=== PATIENT | male | born 2000 | race Caucasian/White ===

== ENCOUNTER 2024-08-19 18:30 | Outpatient (RCR) | payer SELFPAY, OTHER ==
--- NOTE | 2024-08-19 17:50 | HP.OTEVAL_ITS ---
Patient's Visit Information Visit Information Visit Information: SHANE PAYAN is a 23 year old M, referred to Occupational Therapy by Dr. Nuria Rooney MD, with a diagnosis of osteochondrosis of lunate right wrist. Date of Evaluation: 08/09/24 Occupational Therapist: Marilu Pratt, PETERR/Paola, CHT Subjective Subjective: This 23 year old male was seen for OT eval with dx of Osteochondrosis of Lunate of right wrist. 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 pt arrives to session with orthosis on. pt arrives 5 weeks and 1 day s/p from lunate revascularization with graft - ROM Forearm: right 40/45 (with orthosis on) left WNL Wrist: right 25/10 left 65/65 ROM Comments: pt can form composite fist no limitation with digits- no residual swelling in hand or fingers Strength Supervisor Remelt: right NT left 115# Lateral Pinch: right NT left 24# Tripod Pinch: right NT left 24# Strength Comments: will test right later date Sensation Sensation Comments: denies Quick DASH-Disab of Arm,Shoulder& Hand Quick DASH Score: 31.6650 Goals Goal:Daily scar massage when approriate: Yes Goal:ROM equal to unaffected hand: Yes Goal:Supervisor Remelt/Pinch strength at least 75% of unaffected hand: Yes Comment: will initiate when releases Goal:No pain with affected hand use: Yes Goal:Full use of affected hand in daily activities including work: Yes Other Goal: orthosis use: pt demo understanding of orthosis use at all times by end of 1st session. Rehabilitation General Assessment: pt arrives 5 weeks and 1 days s/p from a right lunate vascularized bone graft - PIN neuroma excision. pt arrives with orthosis on reporting he is doing well- pt limited with use of right UE at this time due to newly healing structures. pt would benefit from skilled OT services 1x week for 8 weeks to return pt to his PLOF. pt demo understanding and agree to POC. Today therapist ed. pt on scar mobilization, and to continue with finger/thumb ROM and light initiation of wrist flex/ext only short arch wrist 10-20* only - pt demo understanding. Ed. pt will need cleared by to progress further ROM. Rehabilitation Potential: Good Anticipated Interventions Anticipated Interventions: A/AAROM/PROM, Strengthening, Modalities, Orthoses, Joint Protection/Energy Conservation, Ergonomic Education, Education re Diagnosis and Home Program Visit Plan Frequency: 1x/Week Duration: 2 Months General Plan: pt demo with with no sings of edema Denies pain will initiate light motion of dart throwers and comfort slow motion 10-20* until Dr. shaw pt for further motion TEXT: Thank you for the opportunity to evaluate your patient. For Medicare and Medicare HMO plans, please review the plan of care and approve it. It will need to be FAXED BACK to us at [phone] for Medicare purposes. Please let me know if there are questions or concerns regarding this plan of care. Physician Signature: Date:
--- NOTE | 2024-12-24 15:28 | HP.OT.NRP ---
Patient Information Patient Information: SHANE PAYAN was seen in my office for initial evaluation on 08/09/24. The following Plan of Care was established for this patient: POC Established Initial Frequency: 1x/Week Initial Duration: 2 Months Anticipated Interventions Anticipated Interventions: A/AAROM/PROM, Strengthening, Modalities, Orthoses, Joint Protection/Energy Conservation, Ergonomic Education, Education re Diagnosis and Home Program Last Seen Last Seen: This patient was last seen in our office 08/19/24. Pertinent comments regarding their Occupational therapy will appear below: pt was seen for 2 OT session. Due to time lapse in services pt is d/c at this time. At this point I will be discontinuing this patient from occupational therapy. I would be happy to see this patient again in the future if found appropriate by the physician. Thank you! Marilu Pratt, OTR/L, CHT
== END 2024-08-19 19:00 | disposition home or self-care (01) ==
LOC: OT 18:30
PROVIDERS: PCP Family Medicine; Referring Provider Orthopaedic Surgery Hand Surgery; Visit Provider Orthopaedic Surgery Hand Surgery
DX: M92.211 Osteochondrosis (juvenile) of carpal lunate [Kienbock], right hand (principal)
CPT/HCPCS: 97140; 97166